=== PATIENT | female | born 1955 | race Caucasian/White ===

== ENCOUNTER → 2017-03-06 | Outpatient (CLI) | payer OTHER ==
[~2017-03-06] MED LIST: ARIXTRA7.5 MG/0.6 SQ; ATORVASTATIN CA10 MG PO; AUGMENTIN PO; BACLOFEN10 MG PO; COUMADIN10 MG PO; CYMBALTA30 MG PO; DISCONTINUED MED; DOCU SOFT100 M1 PO; ELIQUIS2.5 MG PO; FISH OIL PO; FLAGYL PO; HYDROCODON-ACE1 EAC7 PO; HYDROCODON-ACE1 EACH PO; LOPID600 MG PO; LORTAB 7.5-5001 TAB PO; OMEPRAZOLE40 M1 PO; PANTOPRAZOLE SO40 MG PO; PHENERGAN12.5 MG DOB; PHENERGAN25 MG PO; PROTONIX20 MG PO; TRAMADOL HCL50 M1 PO; TRAMADOL HCL50 M2 PO; TYLOX1 CAP 5/50; VITAMIN D PO; WARFARIN SODIU7.5 MG
--- NOTE | ~2017-03-06 | BD1 ---
[facility] A Service of [facility] RADIOLOGY TEXT RESULTS PATIENT: NICOLE BRYANT LOCATION: [facility] : 57 UNIT #: [id number] AGE: [address]: Bel Pacheco MD SEX: F ORDER DR: [id number] [facility] [address]. [place], [place] [address] [id number] O MR#: [id number] Acc #: [id number] NAME: NICOLE BRYANT. : 1955 SEX: F STUDY DATE/TIME: 03/06/2017 12:05 UNIT: [facility] ROOM: STUDY DESCRIPTION: BD Dexa Bone Dens 1+ Site Attending Physician: Bel Pacheco M.D. Referring Physician: Bel Pacheco M.D. Ordering Physician: Bel Pacheco M.D. Primary Care Physician: Bel Pacheco M.D. MEDICAL IMAGING REPORT This report is preliminary unless electronic signature is present EXAM DXA scan, 03/06/2017 HISTORY Status post menopause with no hormone replacement therapy. Osteopenia. Hysterectomy with removal of both ovaries. Family history of breast carcinoma in sister. Rheumatoid arthritis. Fracture of right foot in last 10 years. Smoking history. FINDINGS Bone mineral density in the left hip was 0.728 g/cm2 which is 1.8 standard deviations below the mean when compared to the young adult reference population which is characteristic of osteopenia. This is 0.8 standard deviations below the mean when compared to the age-matched population. Bone mineral density in the left forearm was 0.646 g/cm2 which is 0.8 standard deviations below the mean when compared to the young adult reference population which is within the range of normal. This is 0.5 standard deviations above the mean when compared to the age-matched population. IMPRESSION Bone mineral density in the left hip characteristic of osteopenia and within the left forearm within the range of normal. Dictated by... Esdras Cabrera M.D. THIS IS AN ELECTRONICALLY VERIFIED REPORT Esdras Cabrera M.D. at 03/07/2017 2:17 PM KRT/ljd STS. [facility] A Service of [facility] RADIOLOGY TEXT RESULTS PATIENT: NICOLE BRYANT LOCATION: [facility] #: [id number] : 57 UNIT #: [id number] AGE: [address]: Bel Pacheco MD SEX: F ORDER DR: TD: 03/06/2017 21:33 JOB #: [id number] MEDICAL IMAGING REPORT Page 1 of 1 COPY
--- NOTE | ~2017-03-06 | MY29 ---
[facility] A Service of [facility] RADIOLOGY TEXT RESULTS PATIENT: NICOLE BRYANT LOCATION: [facility] : 57 UNIT #: [id number] AGE: [address]: Bel Pacehco MD SEX: F ORDER DR: [id number] [facility] [address] [place], [place] [address] [id number] O MR#: [id number] Acc #: [id number] NAME: NICOLE BRYANT. : 1955 SEX: F STUDY DATE/TIME: 03/06/2017 11:50 UNIT: [facility] ROOM: STUDY DESCRIPTION: MY ELENA SCREENING W/ CAD BILAT Attending Physician: Bel Pacheco M.D. Referring Physician: Bel Pacheco M.D. Ordering Physician: Bel Pacheco M.D. Primary Care Physician: Bel Pacheco M.D. MEDICAL IMAGING REPORT This report is preliminary unless electronic signature is present EXAM Digital screening mammogram 03/06/2017. HISTORY A 61-year-old woman positive family history. New baseline mammogram. COMPARISON STUDIES None. Patient does not remember prior mammogram location. Digital imaging of each breast was completed utilizing a two-view examination of each breast in craniocaudal and mediolateral-oblique projections. Review and interpretation of digital mammograms include a second review in conjunction with FDA-approved CAD device. There is a normal parenchymal presentation bilaterally consistent with the patient's age. There are no breast masses imaged and no parenchymal asymmetry is visualized. There are no suspicious microcalcifications and I see no focal architectural disturbance. IMPRESSION Negative screening digital mammogram. One-year followup recommended. Patients over the age of 40 are entered into a reminder system with target due date for the next mammogram. A result letter will also be sent to the patient. BIRADS: 1 Negative ADDENDUM Breast parenchyma is fatty replaced Dictated by... Jose Mayfield M.D. [facility] A Service of [facility] RADIOLOGY TEXT RESULTS PATIENT: NICOLE BRYANT LOCATION: [facility] : 57 UNIT #: [id number] AGE: [address]: Bel Pacheco MD SEX: F ORDER DR: THIS IS AN ELECTRONICALLY VERIFIED REPORT Jose Mayfield M.D. at 03/07/2017 8:04 AM Yadira TD: 03/06/2017 20:51 JOB #: [id number] MEDICAL IMAGING REPORT Page 1 of 1 COPY
== END | disposition home or self-care (01) ==
LOC: CWCC 11:00
DX: Z12.31 Encounter for screening mammogram for malignant neoplasm of breast (principal); Z80.3 Family history of malignant neoplasm of breast; M81.0 Age-related osteoporosis without current pathological fracture; M85.88 Other specified disorders of bone density and structure, other site
CPT/HCPCS: 77080; G0202

== ENCOUNTER → 2017-04-06 | Day surgery (SDC) | payer OTHER ==
--- NOTE | ~2017-04-06 | OR ---
Unit #: [id number] #: [id number] Patient: NICOLE BRYANT [id number] [address] [address] [id number] O MR#: [id number] NAME: NICOLE BRYANT. ROOM: Date of Procedure: 04/06/2017 Admission Date: 04/06/2017 Surgeon: Prince Mckeon M.D. : 1955 Attending Physician: Prince Mckeon M.D. Primary Care Physician: Bel Pacheco M.D. OPERATIVE REPORT PROCEDURE PERFORMED Colonoscopy to cecum with snare polypectomy. INDICATIONS FOR PROCEDURE Family history of colon cancer in father and personal history of polyp, undergoing colonoscopy for surveillance. MEDICATIONS Monitored anesthesia. POSTOPERATIVE FINDINGS 1. Polyp, ileocecal valve, 4 to 6 mm, snared and sent for histopathology. 2. Polyp, rectum, 5 mm, snared and sent for histopathology. 3. Otherwise normal colon. 4. Good prep. PLAN Repeat colonoscopy in 5 years. DESCRIPTION OF PROCEDURE The patient was explained of the procedure, risks, and benefits along with risks and benefits of anesthesia. She was brought to the endoscopy room. Propofol anesthesia was given. Rectal exam was done, which was normal. Colonoscope was lubricated, passed up the rectum, advanced under direct vision all the way to cecum. Cecum was identified by ileocecal valve and appendiceal orifice. Two polyps were seen as described above. I retroflexed in the rectum, small hemorrhoids seen. The scope was gently pulled out. She tolerated it well. Dictated by... Da Pineda/jose TD: 04/06/2017 14:38 JOB #: [id number] CC: Bel Pacheco M.D. Unit #: [id number] #: [id number] Patient: NICOLE BRYANT OPERATIVE REPORT Page 1 of 1 X Prince Mckeon MD X PROCEDURE OPERATIVE NOTE
== END | disposition home or self-care (01) ==
LOC: COPS 03-23 15:00
DX: Z12.11 Encounter for screening for malignant neoplasm of colon (principal); Z80.0 Family history of malignant neoplasm of digestive organs; K63.5 Polyp of colon; D12.8 Benign neoplasm of rectum; K64.9 Unspecified hemorrhoids; K21.9 Gastro-esophageal reflux disease without esophagitis; E78.5 Hyperlipidemia, unspecified; Z79.899 Other long term (current) drug therapy; Z79.01 Long term (current) use of anticoagulants; Z86.711 Personal history of pulmonary embolism; Z88.5 Allergy status to narcotic agent; Z98.1 Arthrodesis status; Z88.8 Allergy status to other drugs, medicaments and biological substances; Z90.710 Acquired absence of both cervix and uterus
CPT/HCPCS: 88305